=== PATIENT | male | born 1995 | race Caucasian/White ===

== ENCOUNTER 2023-01-24 19:30 | Emergency (ER) | payer BC ==
[~2023-01-24 19:30] MED LIST: Iopamidol 370 76% 100 ML VIAL ONE
[2023-01-24] MEDS ORDERED: Fentanyl 100 MCG/2 ML VIAL ONE (19:50)
[2023-01-24] MEDS ORDERED: Ondansetron PF 4 MG/2 ML Vial ONE (19:50)
[2023-01-24 20:07] LABS: PTT 25.5 sec (22.9-36.1); Prothrombin Time 13.8 sec (12.0-14.7)
[2023-01-24 20:14] LABS: #Basophils 0.2 thou/uL (0.0-0.2); #Lymphocytes 0.6 thou/uL (1.20-3.40); #Monocytes 0.4 thou/uL (0.11-0.59); #Neutrophils 4.6 thou/uL (1.40-6.50); %Basophils 2.9 % (0.0-1.0); %Eosinophils 0.5 % (0.0-10.0); %Lymphocytes 10.5 % (21.0-51.0); %Monocytes 6.2 % (0.0-10.0); %Neutrophils 79.8 % (42.0-75.0); Hemoglobin 15.5 g/dL (14.0-18.0); Mean Corpuscular HGB CONC 34.3 g/dL (32.0-36.0); Mean Corpuscular Hemoglobin 33.3 pg (27.0-31.0); Mean Corpuscular Volume 97.3 fl (78.0-98.0); Mean Platelet Volume 6.4 fL (7.4-10.4); Platelet Count 151 10x3/uL (130-400); RBC Distribution Width 10.7 % (11.5-14.5); Red Blood Cell (RBC) Count 4.66 mill/uL (4.70-6.10); White Blood Cell (WBC) Count 5.7 10x3/uL (4.8-10.8)
[2023-01-24 20:17] LABS: ALT (SGPT) 98 U/L (8-55); AST (SGOT) 146 U/L (5-34); Albumin 3.7 g/dL (3.5-5.0); Alcohol 126.8 mg/dL (Less than 10); Alkaline Phosphatase 103 U/L (40-110); Anion Gap 18 mmol/L (10-20); BUN (Urea Nitrogen) 6 mg/dL (8.9-20.6); Bilirubin, Total 0.8 mg/dL (0.2-1.2); Calc. Creatinine Clearance 0 mL/min (70-130); Calcium 8.9 mg/dL (7.8-10.44); Carbon Dioxide 24 mmol/L (22-29); Chloride 103 mmol/L (98-107); Estimated GFR 92; Glucose 167 mg/dL (70-105); Lipase 214 U/L (8-78); Protein, Total 6.7 g/dL (6.0-8.3); Sodium 141 mmol/L (136-145)
== END 2023-01-24 21:10 | disposition home or self-care (01) ==
LOC: BURERS 19:30
DX: K29.80 Duodenitis without bleeding (principal); F10.129 Alcohol abuse with intoxication, unspecified
CPT/HCPCS: 71260; 74177; 80053; 80307; 83690; 85025; 85610; 85730; 96374; 96375; J2405; J3010; Q9967